=== PATIENT | male | born 1995 | race Caucasian/White ===

== ENCOUNTER 2021-05-13 14:17 | Emergency (ER) | payer OTHER ==
[2021-05-13 15:44] VITALS: BP 112/60; PULSE 58; RESP 20; TEMP 98
[2021-05-13] MEDS ORDERED: DOXYCYCLINE 100 MG CAP PO STA (18:30)
[2021-05-13] MEDS ORDERED: cefTRIAXone 250 MG VIAL IM STA (18:30)
[2021-05-13] MEDS ORDERED: valACYclovir HCL 1,000 MG TABLET PO STA (18:32)
--- NOTE | 2021-05-13 18:44 | ED ---
General Adult HPI - General Chief complaint: Recheck/Abnormal Lab/Rx Stated complaint: not stated, wants to talk privately Time Seen by Provider: 05/13/21 18:11 Source: patient, RN notes reviewed, old records reviewed Mode of arrival: ambulatory Limitations: no limitations - History of Present Illness Initial comments: Jenifer is a 25-year-old male with no significant past medical history presents emergency department concern for genital herpes. Patient does have a positive contact, his girlfriend has a history of herpes and nose lesions recently. She started her medications, however for the last 2-3 days, patient has noticed what appears to be herpes lesions located at the base of his penis. Denies any discharge. States her 2 or 3 lesions. They're grouped together. Denies any penile discharge, purulent discharge. Distal radius any dysuria or hematuria. Has no abdominal pain. His no other acute complaints at this time. Presents to the emergency department to be evaluated for herpes. I evaluated the patient when he was placed in a room. - Related Data Previous Rx's Medication Instructions Recorded Doxycycline Hyclate 100 mg PO BID 7 Days #14 tab 05/13/21 valACYclovir [Valtrex] 1,000 mg PO BID 10 Days #40 tab 05/13/21 Allergies Allergy/AdvReac Type Severity Reaction Status Date / Time No Known Allergies Allergy Verified 05/13/21 15:41 Review of Systems ROS Statement: Those systems with pertinent positive or pertinent negative responses have been documented in the HPI. Review of Systems: CONST: Denies fever EYES: Denies blurry vision ENT: Denies nasal congestion C/V: Denies Chest pain RESP: Denies shortness of breath GI: Denies abdominal pain : Denies dysuria SKIN: Endorses penile lesions concerning for herpes. MSK: Denies joint pain. NEURO: Denies headache ROS Other: All systems not noted in ROS Statement are negative. Past Medical History Past Medical History: No Reported History History of Any Multi-Drug Resistant Organisms: None Reported Past Surgical History: No Surgical Hx Reported Past Psychological History: ADD/ADHD Smoking Status: Current every day smoker Past Alcohol Use History: None Reported Past Drug Use History: Marijuana General Exam - General Exam Comments Initial Comments: General: Appears in no acute distress. HEAD: Normal with no signs of head trauma. EYES: EOMI ENT: Hearing grossly intact RESPIRATORY: No respiratory distress C/V: Regular rate and rhythm ABD: Nondistended abdomen EXT: No obvious deformity SKIN: Patient has 2-3 group shallow ulcerative lesions with an erythematous base located on the dorsal shaft at the base of the penis. Testicles are nontender. No penile discharge. No other lesions. NEURO: Alert and oriented 4. Limitations: no limitations Course Vital Signs 05/13/21 15:41 Temperature 98.0 F Pulse Rate 58 L Respiratory 20 Rate Blood Pressure 112/60 O2 Sat by Pulse 99 Oximetry Medical Decision Making - Medical Decision Making Percent patient's presentation and physical exam, it appears he has general herpes. We will test her for genital herpes. I did offer him STD testing in addition, specifically gonorrhea and chlamydia which she declined. He did accept empiric treatment. He will be given 1 g of valacyclovir, 500 mg of IM Rocephin, and 100 mg of doxycycline. We'll swab the ulcers for genital herpes. I'll provide him with a follow-up physician. He'll be given prescriptions for antivirals and antibiotics. He was in agreement this plan. I counseled him on safe sex practices now that he is diagnosed with an STD. I recommended that he abstain from sexual intercourse until his herpes has resolved. He was in agreement this plan. I will provide the patient with a prescription for valacyclovir 1 g twice a day for 10 days, doxycycline 100 mg twice a day for 7 days. I instructed the patient to follow up with their PCP in the next 3 days. [I provided contact information for follow up with] Dr. Araujo. I explained that the patient should return to the emergency department if they experience any worsening symptoms. Strict return precautions were discussed with the patient. The patient expressed understanding of these instructions. I answered all questions that the patient had. The patient was discharged home in good condition with their prescriptions and follow up information. Disposition Clinical Impression: Genital herpes Disposition: HOME SELF-CARE Condition: Good Instructions (If sedation given, give patient instructions): Genital Herpes Simplex (ED) Prescriptions: Doxycycline Hyclate 100 mg PO BID 7 Days #14 tab valACYclovir [Valtrex] 1,000 mg PO BID 10 Days #40 tab Is patient prescribed a controlled substance at d/c from ED?: No Referrals: None,Stated [Primary Care Provider] - 1-2 days Bartolome Araujo MD [STAFF PHYSICIAN] - 1-2 days
--- NOTE | 2021-05-13 19:25 | ED ---
Disposition Clinical Impression: Genital herpes Disposition: HOME SELF-CARE Condition: Good Instructions (If sedation given, give patient instructions): Genital Herpes Simplex (ED) Prescriptions: Doxycycline Hyclate 100 mg PO BID 7 Days #14 tab valACYclovir [Valtrex] 1,000 mg PO BID 10 Days #40 tab Is patient prescribed a controlled substance at d/c from ED?: No Referrals: Bartolome Araujo MD [STAFF PHYSICIAN] - 1-2 days None,Stated [Primary Care Provider] - 1-2 days
== END 2021-05-13 18:53 | disposition home or self-care (01) ==
LOC: EC 14:17
DX: A60.00 Herpesviral infection of urogenital system, unspecified (principal); F17.200 Nicotine dependence, unspecified, uncomplicated
CPT/HCPCS: 99283; 96372; J0696